=== PATIENT | female | born 1980 | race African-American/Black ===

== ENCOUNTER 2021-12-04 15:37 | Emergency (ER) | payer OTHER ==
[2021-12-04 15:51] VITALS: BMI 24.6
[2021-12-04 18:00] VITALS: BP 114/72; PULSE 79; TEMP 98.2
== END 2021-12-04 21:48 | disposition home or self-care (01) ==
LOC: JER 15:37
DX: O47.03 False labor before 37 completed weeks of gestation, third trimester (principal); V49.50XA Passenger injured in collision with unspecified motor vehicles in traffic accident, initial encounter; Z3A.38 38 weeks gestation of pregnancy
CPT/HCPCS: 76819-TC; 99283-25

== ENCOUNTER 2021-12-09 10:30 | Inpatient (IN) | payer OTHER ==
[2021-12-09] MEDS ORDERED: DEXTROSE 5%-WATER - 1,000 ML IV SCH (12:00)
[2021-12-09] MEDS ORDERED: AMPICILLIN - 2 GM in SODIUM CHLORIDE 100 ML IVPB ONE (12:11)
[2021-12-09] MEDS ORDERED: ELECTROLYTE-148 SOLN 1,000 ML IV SCH (12:15)
[2021-12-09] MEDS ORDERED: SODIUM CHLORIDE 500 ML IV STA (12:23)
[2021-12-09 12:40] LABS: BASO % 0.5 % (0-2.0); EOS % 0.6 % (0-4.5); HEMOGLOBIN 9.8 GM/dL (10.7-15.3); LYMPH % 13.9 % (8-40); MCHC 32.6 g/dl (32.0-36.0); MEAN CELL VOLUME 79.8 fl (80-96); MEAN PLT VOLUME 9.8 fl (7.5-11.1); MONO % 11.1 % (3.8-10.2); NEUT % 73.9 % (42.8-82.8); PLATELET COUNT 220 10^3/uL (134-434); RBC 3.77 M/mm3 (3.60-5.2); RDW 14.7 % (11.6-15.6); WHITE BLOOD COUNT 6.7 K/mm3 (4.0-10.0)
[2021-12-09 12:43] VITALS: BMI 24.7
[2021-12-09 12:50] LABS: ACTIVATED PTT 27.8 SECONDS (25.2-36.5); INR 0.91 (0.83-1.09); PROTHROMBIN TIME (PATIENT) 10.4 SEC (9.7-13.0)
[2021-12-09 13:03] LABS: ALBUMIN 2.3 g/dl (3.4-5.0); BLOOD UREA NITROGEN 7.8 mg/dL (7-18)
[2021-12-09 13:06] LABS: CREATININE 0.7 mg/dL (0.55-1.3)
[2021-12-09 13:08] LABS: BILIRUBIN,TOTAL 0.5 mg/dL (0.2-1); TOT PROT 6.1 g/dl (6.4-8.2)
[2021-12-09] MEDS ORDERED: AMPICILLIN SODIUM 2 GM VIAL ONE (14:25)
[2021-12-09 14:54] VITALS: BP 104/60; PULSE 79; TEMP 97.9
[2021-12-09] MEDS ORDERED: AMPICILLIN - 1 GM in SODIUM CHLORIDE 100 ML IVPB SCH (16:11)
[2021-12-13 00:38] LABS: SYPHILIS W/ RPR CONF NON-REACTIVE (NONREACTIVE)
[2021-12-13 01:07] LABS: HIV INTERPRETATION NEGATIVE (NEGATIVE)
== END 2021-12-09 15:43 | disposition home or self-care (01) | DRG 566 ==
LOC: JDEL 10:30 → JLDR 12:00
PROVIDERS: ADMIT Obstetrics & Gynecology; ATTEND Obstetrics & Gynecology
DX: O36.8330 Maternal care for abnormalities of the fetal heart rate or rhythm, third trimester, not applicable or unspecified (principal); O42.92 Full-term premature rupture of membranes, unspecified as to length of time between rupture and onset of labor; O34.13 Maternal care for benign tumor of corpus uteri, third trimester; Z3A.38 38 weeks gestation of pregnancy
CPT/HCPCS: 36415; 80053; 85025; 85610; 85730; 86762; 86780; 86850; 86900; 86901; 87340; 87389; C9803-CS; U0003; U0005

== ENCOUNTER 2021-12-15 00:45 | Inpatient (IN) | payer OTHER ==
[2021-12-15] MEDS ORDERED: OXYTOCIN 20 UNITS in 0.9% NS 20 UNIT/1,000 ML INFUS.BAG IV ONE ×2 (01:15→03:30)
[2021-12-15] MEDS ORDERED: PROMETHAZINE HCL 25 MG/1 ML VIAL ONE (01:30)
[2021-12-15] MEDS ORDERED: BUTORPHANOL TARTRATE 2 MG/ML VIAL ONE (01:30)
[2021-12-15] MEDS ORDERED: PROMETHAZINE HCL 25 MG/1 ML VIAL IVPUSH ONE (01:33)
[2021-12-15] MEDS ORDERED: BUTORPHANOL TARTRATE 1 MG/ML VIAL IVPB PRN (01:33)
[2021-12-15] MEDS ORDERED: AMPICILLIN - 2 GM in SODIUM CHLORIDE 100 ML IVPB ONE (01:35)
[2021-12-15] MEDS ORDERED: ELECTROLYTE-148 SOLN 1,000 ML IV SCH (01:45)
[2021-12-15] MEDS ORDERED: AMPICILLIN SODIUM 2 GM VIAL ONE (02:15)
[2021-12-15 02:27] VITALS: BMI 24.7
[2021-12-15] MEDS ORDERED: AMPICILLIN - 1 GM in SODIUM CHLORIDE 100 ML IVPB SCH (05:35)
[2021-12-15] MEDS ORDERED: ACETAMINOPHEN 325 MG TABLET (FP) PO PRN (09:08)
[2021-12-15] MEDS ORDERED: WITCH HAZEL 50% (TUCKS) 40 PAD/JAR PAD TP PRN (09:08)
[2021-12-15] MEDS ORDERED: BENZOCAINE 20% 57 GM BOTTLE TP PRN (09:08)
[2021-12-15] MEDS ORDERED: IBUPROFEN 600 MG TABLET (FP) PO PRN (09:08)
[2021-12-15] MEDS ORDERED: METHYLERGONOVINE MALEATE 0.2 MG/1 ML AMP IM PRN (09:08)
[2021-12-15] MEDS ORDERED: BISACODYL 10 MG SUPP.RECT RC PRN (09:08)
[2021-12-15] MEDS ORDERED: oxyCODONE HCL 5 MG TABLET PO PRN (09:08)
[2021-12-15] MEDS ORDERED: BENZOCAINE 28 GM HEMORRHOIDAL OINTMENT TP PRN (09:08)
[2021-12-15] MEDS ORDERED: OXYTOCIN 20 UNITS in 0.9% NS 20 UNITS/1,000 ML INFUS.BAG IV SCH (09:15)
[2021-12-15 11:28] LABS: BASO % 0.4 % (0-2.0); HEMATOCRIT 29.6 % (32.4-45.2); HEMOGLOBIN 9.6 GM/dL (10.7-15.3); LYMPH % 6.3 % (8-40); MCH 25.8 pg (25.7-33.7); MCHC 32.3 g/dl (32.0-36.0); MEAN CELL VOLUME 79.9 fl (80-96); MEAN PLT VOLUME 9.9 fl (7.5-11.1); MONO % 6.1 % (3.8-10.2); NEUT % 87.2 % (42.8-82.8); PLATELET COUNT 187 10^3/uL (134-434); RBC 3.71 M/mm3 (3.60-5.2); RDW 15.4 % (11.6-15.6)
[2021-12-15 11:34] LABS: INR 0.95 (0.83-1.09); PROTHROMBIN TIME (PATIENT) 10.9 SEC (9.7-13.0)
[2021-12-15 11:36] LABS: ACTIVATED PTT 26.8 SECONDS (25.2-36.5)
[2021-12-15 11:47] LABS: CALCIUM 8.6 mg/dL (8.5-10.1)
[2021-12-15 11:48] LABS: BLOOD UREA NITROGEN 4.6 mg/dL (7-18)
[2021-12-15 11:51] LABS: CREATININE 0.7 mg/dL (0.55-1.3)
[2021-12-16 08:43] LABS: BASO % 0.5 % (0-2.0); EOS % 0.6 % (0-4.5); HEMATOCRIT 27.4 % (32.4-45.2); LYMPH % 11.7 % (8-40); MCH 25.7 pg (25.7-33.7); MCHC 32.7 g/dl (32.0-36.0); MEAN CELL VOLUME 78.8 fl (80-96); MEAN PLT VOLUME 9.3 fl (7.5-11.1); MONO % 8.7 % (3.8-10.2); NEUT % 78.5 % (42.8-82.8); PLATELET COUNT 183 10^3/uL (134-434); RBC 3.48 M/mm3 (3.60-5.2); RDW 15.2 % (11.6-15.6); WHITE BLOOD COUNT 9.8 K/mm3 (4.0-10.0)
[2021-12-16] MEDS ORDERED: SENNOSIDES/DOCUSATE COMBO (SENNA PLUS) TABLET (UD) PO PRN (22:00)
[2021-12-17 10:04] VITALS: BP 106/67; PULSE 83; TEMP 98.9
== END 2021-12-17 14:10 | disposition home or self-care (01) | DRG 560 ==
LOC: JLDR 00:45 → J3W 05:32
PROVIDERS: ADMIT Obstetrics & Gynecology; ATTEND Obstetrics & Gynecology
PROC: 10E0XZZ Delivery of Products of Conception, External Approach (ICD-10-PCS; principal; 2021-12-15)
DX: O62.3 Precipitate labor (principal); O42.02 Full-term premature rupture of membranes, onset of labor within 24 hours of rupture; Z87.59 Personal history of other complications of pregnancy, childbirth and the puerperium; Z3A.39 39 weeks gestation of pregnancy; Z37.0 Single live birth
CPT/HCPCS: 36415; 59409; 80048; 85025; 85610; 85730; 86780; 86850; 86900; 86901; C9803-CS; U0003; U0005